=== PATIENT | female | born 1965 | race African-American/Black ===

== ENCOUNTER 2016-09-20 07:51 | Emergency (ER) | payer OTHER, MEDICAID ==
[~2016-09-20] VITALS: Ht 180.3 cm; Wt 84.4 kg
[~2016-09-20 07:51] MED LIST: ACETAMINOPHEN-1 EAC1 ORAL; ASPIR 8181 MG ORAL; BP pill; COLACE100 MG ORAL; COUMADIN5 MG PO; CYCLOBENZAPRINE10 MG ORAL; Coumadin; FLEXERIL5 MG PO; HYDROCHLOROTHIA25 MG ORAL; IBUPROFEN600 MG ORAL; METOPROLOL TART25 MG PO; MOTRIN600 MG PO; NORCO 5-325 TA1 EACH ORAL; NORCO 5-325 TA1 EACH PO; PAXIL10 MG ORAL; SIMVASTATIN40 MG PO; SYNTHROID50 MCG PO; TAPAZOLE10 MG ORAL
[2016-09-20] MEDS ORDERED: CLARITIN-D 241 EACH PO (08:10)
[2016-09-20 08:23] VITALS: BP 155/88
--- NOTE | 2016-09-20 08:23 | Emergency Room Report ---
History of Present Illness General Chief Complaint: Earache Source: Patient, Medical Record Present Illness HPI Patient is a 50-year-old female who presented after increased of right earache. Patient reported having a slight increased ear fullness. The patient reported having recent bloody discharge from her right ear. Patient denies Q- tip use. She denies any prior trauma. She denies any fever. She denied a sore throat. She denies congestion. The patient gradual onset of symptoms of the past 2 days. Allergies: Coded Allergies: No Known Allergies (Verified , 02/01/08) Patient History Past Medical History: see triage record Reviewed Nursing Documentation: PMH: Agreed, PSxH: Agreed Nursing Documentation-PMH Past Medical History: No History, Except For Hx Cardiac Problems: Yes - AFIB, [place] 2006 Hx Hypertension: Yes Hx Pacemaker: Yes Hx Cancer: No Hx Gastrointestinal Problems: Yes - HYSTERECTOMY Hx Neurological Problems: Yes Hx Cerebrovascular Accident: Yes - 2010 Hx Dizziness: Yes Hx Syncope: Yes Hx Headaches: Yes Hx Numbness: Yes Hx Weakness: Yes Hx Fatigue: Yes Review of Systems All Other Systems: negative except mentioned in HPI Physical Exam Vital Signs Date Time Temp Pulse Resp B/P Pulse Ox O2 Delivery O2 Flow Rate FiO2 09/20/16 07:58 97.9 74 16 170/95 98 Room Air General Appearance: well appearing, no apparent distress, alert, GCS 15 Head: normocephalic, atraumatic ENT: hearing grossly normal, normal voice, TMs + canals normal, uvula midline Neck: full range of motion, supple Respiratory: no respiratory distress, speaking full sentences Cardiovascular #1: normal inspection, normal peripheral pulses, regular rate, rhythm Gastrointestinal: normal inspection Musculoskeletal: no calf tenderness Neurologic: normal inspection, alert, oriented x3, responsive, wind science and planning III-XII nml as tested, motor strength/tone normal, normal gait Psychiatric: mood/affect normal Skin: no rash Medical Decision Making Diagnostic Impression: Primary Impression: Earache, right ER Course Patient presented for ear pain. Differential diagnosis included was not limited to otitis media, malignant otitis externa, foreign body, cellulitis, mastoiditis, carotid dissection, myocardial infarction among others. Patient' s benign exam and does not appear to require any further imaging or laboratory testing at this time. Patient appears to have some evidence of eustachian tube dysfunction. There is no evidence of hemorrhage or rupture of eardrum. The patient has no drainage from ear canal at this time. The patient is advised to follow up with primary care doctor in 1-2 days. Patient is advised to return if any worsening condition or if any changes in status that are concerning. Last Vital Signs Date Time Temp Pulse Resp B/P Pulse Ox O2 Delivery O2 Flow Rate FiO2 09/20/16 07:58 97.9 74 16 170/95 98 Room Air Status: improved Disposition: HOME, SELF-CARE Condition: Stable Scripts Loratadine/Pseudoephedrine (CLARITIN-D 24 HOUR TABLET) 1 Each Tab.er.24h 1 TAB PO DAILY, #30 TAB Prov: Edward Angulo 09/20/16 Referrals: NOT CHOSEN [facility]/,REFERRING (PCP) Patient Instructions: Earache Edward Angulo September 20, 2016 08:23
[2016-09-20 08:24] VITALS: BP 170/95
== END 2016-09-20 08:26 | disposition home or self-care (01) ==
LOC: EMR 08:09
DX: H92.01 Otalgia, right ear (principal); I25.2 Old myocardial infarction; I10 Essential (primary) hypertension; I48.91 Unspecified atrial fibrillation; Z86.73 Personal history of transient ischemic attack (TIA), and cerebral infarction without residual deficits
CPT/HCPCS: 99283

== ENCOUNTER 2017-02-18 11:45 | Emergency (ER) | payer MEDICAID, MEDICARE, OTHER ==
[~2017-02-18] VITALS: Ht 182.9 cm; Wt 83.0 kg
[~2017-02-18 11:45] MED LIST changes: +CLARITIN-D 241 EACH PO
[2017-02-18] MEDS ORDERED: ACETAMINOPHEN-1 EAC1 ORAL (13:25)
[2017-02-18] MEDS ORDERED: Tylenol #3 tab (300mg/30mg) ORAL ONE (13:30)
[2017-02-18 13:42] VITALS: BP 147/89
--- NOTE | 2017-02-18 15:28 | Emergency Room Report ---
History of Present Illness General Chief Complaint: Lower Extremity Injury Source: Patient Present Illness HPI 51-year-old female presents ED complaining of left foot pain. States that she banged her left fifth toe against a door 2 days ago. Feels pain and bruising to that toe. Pain is throbbing, 8/10, nonradiating. Worse with walking. Denies any other injuries. No other aggravating relieving factors. Denies any other associated symptoms Allergies: Coded Allergies: No Known Allergies (Verified , 02/01/08) Patient History Past Medical History: HTN, [place], AFib, CVA/TIA Past Surgical History: pacemaker, other - knee replacmeent Pertinent Family History: none Social History: Denies: smoking, alcohol use, drug use Last Menstrual Period: n/a Now: No Immunizations: UTD Reviewed Nursing Documentation: PMH: Agreed, PSxH: Agreed Nursing Documentation-PMH Hx Cardiac Problems: Yes - AFIB, [place] 2006 Hx Hypertension: Yes Hx Pacemaker: Yes Hx Cancer: No Hx Gastrointestinal Problems: Yes - HYSTERECTOMY Hx Neurological Problems: Yes - Total left Knee replacement 1993 Hx Cerebrovascular Accident: Yes - 2010 Hx Dizziness: Yes Hx Syncope: Yes Hx Headaches: Yes Hx Numbness: Yes Hx Weakness: Yes Hx Fatigue: Yes Review of Systems All Other Systems: negative except mentioned in HPI Physical Exam Vital Signs Date Time Temp Pulse Resp B/P (MAP) Pulse Ox O2 Delivery O2 Flow Rate FiO2 02/18/17 11:49 97.9 67 16 147/89 96 Room Air Sp02 EP Interpretation: reviewed, normal General Appearance: no apparent distress, alert, GCS 15, non-toxic Head: normocephalic Eyes: bilateral eye normal inspection, bilateral eye PERRL ENT: normal ENT inspection Neck: normal inspection Respiratory: normal inspection Cardiovascular #1: normal inspection Gastrointestinal: normal inspection Rectal: deferred Genitourinary: no CVA tenderness Musculoskeletal: tender - L 5th toe Neurologic: alert, oriented x3, responsive, motor strength/tone normal, sensory intact, speech normal Psychiatric: normal inspection Skin: normal inspection Lymphatic: normal inspection Procedures Splinting Splinting : Consent: Verbal Pre-Made Type: castshoe Pre-Proc Neuro Vasc Exam: normal Post-Proc Neuro Vasc Exam: normal Patient Tolerated: Well Complications: None Medical Decision Making Diagnostic Impression: Primary Impression: Broken toe Qualified Codes: S92.515A - Nondisplaced fracture of proximal phalanx of left lesser toe(s), initial encounter for closed fracture ER Course Hospital Course 51-year-old F presents to ED complaining of L foot pain s/p hit door Differential diagnoses include: Fracture, dislocation, sprain, contusion Clinical course Patient placed on stretcher. After initial history and physical, I ordered pain medications and Xrays of L foot Xrays prelim read shows proximal 5th phalanx fx. seda tape applied. cast shoe Diagnosis - broken toe Stable and discharged to home with prescription for Tylenol #3. apply ice, keep elevated. weight bear as tolerated. Followup with PMD. Return to ED if symptoms recur or worsen Other X-Ray Diagnostic Results Other X-Ray Diagnostic Results : X-Ray ordered: L foot # of Views/Limited Vs Complete: 3 View Indication: Pain EP Interpretation: Yes Interpretation: no dislocation, no soft tissue swelling, other - proximal L 5th toe fx Impression: Other Electronically Signed by: Electronically signed by Manjeet Lazcano MD Last Vital Signs Date Time Temp Pulse Resp B/P (MAP) Pulse Ox O2 Delivery O2 Flow Rate FiO2 02/18/17 13:42 97.9 69 17 147/89 99 Room Air Status: improved Disposition: HOME, SELF-CARE Condition: Stable Scripts Acetaminophen With Codeine (T#3) (TYLENOL #3 TAB*) Y Tab 1 TAB ORAL Q8H Y for For Pain, #20 TAB Prov: MANJEET LAZCANO M.D. 02/18/17 Patient Instructions: Toe Fracture, [id number] MANJEET LAZCANO M.D. Feb 18, 2017 15:28
--- NOTE | 2017-02-18 16:08 | Diagnostic Imaging Report ---
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 No definite acute fractures. No dislocations. Joint spaces are preserved Impression: No acute process
== END 2017-02-18 13:42 | disposition home or self-care (01) ==
LOC: EMR 12:25
DX: S62.617A Displaced fracture of proximal phalanx of left little finger, initial encounter for closed fracture (principal); Z86.73 Personal history of transient ischemic attack (TIA), and cerebral infarction without residual deficits; Z90.710 Acquired absence of both cervix and uterus; Z96.652 Presence of left artificial knee joint; I10 Essential (primary) hypertension; Z95.0 Presence of cardiac pacemaker; I25.2 Old myocardial infarction; I48.91 Unspecified atrial fibrillation; W22.09XA Striking against other stationary object, initial encounter; Y92.9 Unspecified place or not applicable
CPT/HCPCS: 99283